=== PATIENT | male | born 1980 | race Caucasian/White ===

== ENCOUNTER 2022-09-10 14:04 | Emergency (ER) | payer MEDICARE, SELFPAY ==
[2022-09-10 14:06] VITALS: BP 159/87; PULSE 71; RESP 16; TEMP 36.4; O2SAT 98; BMI 44.4
--- NOTE | 2022-09-10 14:24 | EDS_ITS ---
HPI History of Present Illness Chief Complaint: Upper Extremity Injury Informant: patient Narrative Narrative: Patient states he has had 3 to 4 days of waxing and waning pain, numbness, weakness in his right upper extremity. The pain goes up into the right side of his neck and rojas. He has burning tingling down his right arm, he states today it will not move at all he cannot use it. He sees pain management for chronic pain in both of his knees after having both of them replaced, and requires a walker to get around. Now because of his right arm he cannot use his walker at all. He states that the radial aspect of his arm and forearm are worse than the ulnar. He has a history of disc issues in his low back, and has had to have surgery. He denies ever having neck issues with regards to disc disease. He denies any new weakness or numbness in his legs or anywhere else. The pain goes into his anterior right axilla into the pectoralis muscles. He denies any pleuritic symptoms but it really hurts to move his right arm and his shoulder. This is the third visit to an emergency department for this patient in the last 2 days. He states initially he went to [facility], he states that he saw the PA they did some testing but then he was kicked out into the waiting room waiting on an ED bed which he did not wait long enough to get. He eloped and went to [facility]. He states they basically did a cardiac work-up with a chest x-ray, he states they told him it was unremarkable and they were going to admit him to [place] since there is no inpatient fenton at [place], and he was waiting for half of the day, when they told him that there was no bed available today that he would have to wait until tomorrow or the next day, he eloped from there and then came here. [facility] Medical History (Updated 09/10/22 @ 16:[address] Shyam Chappell MD) Chronic pain of both knees Allergy/AdvReac Type Severity Reaction Status Date / Time prednisone Allergy Severe UNRESPONSIV Verified 09/10/22 14:15 E ciprofloxacin [From Cipro] Allergy Mild Hives Verified 09/10/22 14:15 IV CONTRAST Allergy Intermediate SOB Uncoded 09/10/22 14:15 NSAIDS AdvReac Intermediate GASTRIC Uncoded 09/10/22 14:15 BYPASS Surgical History History of bilateral knee replacement History of gastric bypass Social History Smoking Status: Never smoker ROS ROS ED Constitutional Constitutional ED: Denies chills or fever(s) Eyes Eyes: Denies change in vision or diplopia ENT ENT ED: Denies rhinorrhea or sore throat Cardiovascular Cardiovascular: Denies chest pain or palpitations Respiratory/Chest Respiratory/Chest: Denies cough or dyspnea Gastrointestinal Gastrointestinal: Denies abdominal pain, diarrhea, nausea or vomiting Genitourinary Genitourinary ED: Denies dysuria or hematuria Musculoskeletal Musculoskeletal: Reports neck pain; Denies back pain Integumentary Denies abscess or rash Neurologic Neurologic: Reports paresthesias RUE and weakness; Denies headache(s) Psychiatric Psychiatric: Denies anxiety or suicidal thoughts EXAM Physical Exam Const Vital Signs: 09/10/22 14:06 Temperature 97.5 F L Temperature Source Temporal Pulse Rate 71 Respiratory Rate 16 Blood Pressure 159/87 H Blood Pressure Mean 111 Pulse Ox 98 Oxygen Delivery Method Room Air Positive well nourished, well developed and obese General Appearance ED: well developed and NAD Nutritional Appearance: obese HEENT Reports moist mucous membranes normocephalic and atraumatic Eyes PERRL and EOMs intact bilaterally Neck full ROM and supple Chest Wall inspection of chest normal and palpation of chest normal Resp normal respiratory effort and clear to auscultation bilaterally Cardio regular rate, regular rhythm and no murmurs GI non-tender and non-distended Auscultation: normoactive bowel sounds Palpation: soft Back/Spine no CVA tenderness General Back: other FROM Extremity normal to inspection Extremity Narrative: Holding right upper extremity in position of comfort. Increased tone but pa tient unable to move anything. Any passive range hurts severely in the right shoulder. He has tenderness in the skin, however all compartments are soft and nondistended and basically nontender with compression. 2+/4 radial pulse. General Extremety ED: Yes tenderness; Negative for edema or pulses abnormal General Extremity: Negative for edema or pulses abnormal Neuro oriented x3 and CN's II-XII intact bilaterally Neuro Narrative: Normal strength left upper extremity in both legs. Normal sensation there. He has decreased sensation throughout the right upper extremity, deficits are more significant at the radial aspect of the upper arm, forearm, and into the first couple fingers, however it is a relatively limited exam since he had decreased sensation everywhere. He cannot move everything but tone is high with regards to the right upper extremity only. Sensorium / Orientation: awake and alert Psych mental status grossly normal Skin no rashes or lesions noted and no wounds MDM MDM MDM Narrative Medical decision making narrative: I performed three-view x-ray of the right shoulder, my interpretation shows no evidence of dislocation or fracture. I think the patient is going to need an MRI of his cervical spine. I discussed with Dr. Gonzalez who is on-call for spine surgery, he agrees and states he does not need to be stat in this scenario. If he has a disc on MRI, he would not operate emergently, it does not sound like a myelopathy, and he would see the patient as an outpatient, or inpatient consultation if he needs to be admitted. If he gets admitted, he recommends IV steroids and gabapentin to help with the symptoms. However, the patient declares unresponsive reaction to steroids so I am holding off on that. I discussed all this with the patient. He states he cannot be admitted here after we discussed the fact that the MRI at this facility is not an open MRI. He refuses to undergo MRI and a closed MRI machine. I told him that if we admitted him here, it would only be for placement to a fdc if he cannot function at home and does not have enough help for assistance. He states he does not want that, and would prefer to be transferred somewhere else which he is requesting since we do in fact provide the services he requires. I initially discussed with the [facility] transfer center. They state that the patient was discharged from their facility yesterday, not this morning. It turns out the patient has been staying in a hotel because he cannot get into his house since he has to use his walker and cannot physically use it. He does not have enough help to go home. Furthermore, records obtained through [facility] shows that the patient was actually seen this morning at [facility] because of what the patient stated to the doctor was a misunderstanding concerning a potential suicidal threat. When there, the patient had CBC, CMP, drug screen, and urinalysis all of which was normal except for nonspecifically barely elevated alkaline phosphatase of 142, hemoglobin of 10.6, and testing positive for opiates/oxycodone; I reviewed those results. He was evaluated by crisis and deemed stable to be discharged, and they discharged him. [facility] has an open MRI. The patient is amenable to being transferred there. Discussed with Dr. Fisher who accepts the patient. History & Record Review Additional record(s) reviewed:: Prior outpatient record Discharge Plan Triage Chief Complaint: Upper Extremity Injury ED Provider: Shyam Chappell Dx/Rx/DC Orders Clinical Impression: Cervical radiculopathy, acute, Bilateral chronic knee pain, Inability to walk Primary Care Provider: ANALI YARBROUGH Referrals: ANALI YARBROUGH [Other] Disposition Disposition: Acute Care Hospital Discharge Location: [facility]
--- NOTE | 2022-09-10 15:20 | RAD_ITS ---
INDICATION: pain EXAMINATION/TECHNIQUE: X-RAY - RIGHT XR Shoulder Min 2 Views 2 VIEWS COMPARISON: FINDINGS: SOFT TISSUES: No soft tissue swelling or gas. No radiopaque foreign body. BONES/JOINTS: No acute fracture or subluxation.. Normal alignment. Preservation of the joint space.. No sclerotic or destructive changes observed. RAD/Shoulder min 2 Views IMPRESSION: Negative. Electronically Signed: Vu Infante MD at 15:44 EDT ,
[2022-09-10] MEDS: Morphine 4 MG/ML Syringe IM (16:05)
--- NOTE | 2022-09-10 16:07 | NURSING ---
1541 CALLED [facility], TALKED TO ELIZABETH. SHE TALKED TO DR ANAYA
--- NOTE | 2022-09-10 16:08 | NURSING ---
1551 CALLED [facility]. TALKED TO
--- NOTE | 2022-09-10 16:08 | NURSING ---
FAXED FACESHEET TO [facility]. PRINCIPAL ARCHAEOLOGIST GERARDO TALKING TO DR ANAYA
--- NOTE | 2022-09-10 16:52 | NURSING ---
[facility] [address] NURSE MARSHAL NURSE TO NURSE [phone]
[2022-09-10] MEDS: Gabapentin 300 MG Capsule 600 MG PO (17:00)
--- NOTE | 2022-09-10 17:02 | NURSING ---
CALLED [facility], ETA IS 2 TO 3 HOURS
[2022-09-10 17:13] VITALS: BP 134/72; PULSE 166; RESP 16; TEMP 36.3; O2SAT 96
== END 2022-09-10 20:15 | disposition short-term general hospital (02) ==
PROVIDERS: Emergency Provider Emergency Medicine; Visit Provider Emergency Medicine
DX: G89.29 Other chronic pain (principal); M54.12 Radiculopathy, cervical region; R26.2 Difficulty in walking, not elsewhere classified; M25.561 Pain in right knee; M25.562 Pain in left knee
CPT/HCPCS: 73030; 96374; 96376; 99285